=== PATIENT | male | born 1960 | race Caucasian/White ===

== ENCOUNTER 2017-03-03 21:14 | Inpatient (IN) ==
--- NOTE | 2017-03-03 21:39 | Emergency Department Note ---
Disposition Clinical Impression: Transaminitis, Elevated bilirubin, Elevated alkaline phosphatase level, Common bile duct (CBD) obstruction Disposition: Admitted As Inpatient Condition: Good Referrals: Cathleen Booth MD [Non-Partnered Physician] - Forms: ED Satisfaction Letter, Work/School Release Abdominal Pain HPI - General Chief Complaint: ED Abdominal Pain Stated Complaint: bile duct obstruction Time Seen by Provider: 03/03/17 21:37 Source: EMS Mode of arrival: EMS Limitations: no limitations Nursing Notes Reviewed: Yes Vital Signs Reviewed: Yes - History of Present Illness HPI Narrative: 56-year-old male no medical or surgical history presents to the ER due to abnormal labs. Patient states that for the last 3 weeks he has had intermittent abdominal pain as well as nausea and vomiting. He states 3 weeks ago that he took some Pepto-Bismol then broke out into hives and had shortness of breath. He was seen at an emergency department at that time. He states since then he has had hives and itching twice. He was noted to be jaundiced and his eyes last week by coworkers. He reports he has continued to have some periumbilical abdominal pain. No fevers at home. No vomiting or diarrhea. No history of abdominal surgeries. 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 He was seen at the [facility] today where he was noted to be jaundiced with an elevated bilirubin. CT scan demonstrated likely common bile duct obstruction. Patient transferred for gastroenterology evaluation. Pt Subjective Complaint: abdominal pain Onset (ago): week(s) Consistency: intermittent Location: periumbilical Pain Severity: mild Pain Scale: 3 Quality: aching Radiation: none Migration to: no migration Improves with: nothing Worsens with: nothing Associated symptoms: Reports: nausea, vomiting. Denies: fever Treatments prior to arrival: none - Related Data Home Medications Medication Instructions Recorded Confirmed No Known Home Drugs 03/03/17 03/03/17 Allergies Allergy/AdvReac Type Severity Reaction Status Date / Time bismuth subsalicylate Allergy Swelling Verified 03/03/17 21:21 [From Pepto-Bismol] of Lip/Tongue/Throat All systems ED: reviewed and negative except as stated. Constitutional: Denies: fever Cardiovascular: Denies: chest pain Respiratory: Denies: dyspnea Gastrointestinal: Reports: abdominal pain, nausea, vomiting. Denies: diarrhea Genitourinary: Denies: dysuria, hematuria Abdominal Pain PMH - Past Medical History Medical history: Reports: arthritis, COPD, hyperlipidemia, other Male Surgical History: Reports: herniorrhaphy, orthopedic, other Psychiatric history: Reports: no psych history - Social History Smoking status: Current every day smoker Alcohol use: Reports: none Drug use: Reports: none Physical Exam - General Limitations: no limitations General appearance: alert, in no apparent distress - Head Head exam: atraumatic, normocephalic - Eye Eye exam: Present: normal appearance, scleral icterus - ENT ENT exam: normal exam - Neck Neck exam: Present: normal inspection, full ROM - Chest Chest inspection: Present: normal inspection, symmetric chest wall rise - Respiratory Respiratory exam: Present: normal lung sounds bilaterally - Cardiovascular Cardiovascular exam: Present: regular rate, normal rhythm, normal heart sounds - Abdominal Exam Abdominal exam: Present: soft, tenderness (Mild tenderness to palpation periumbilically. Negative Cortes sign. No rigidity or distention.) - Extremities Exam Extremities exam: Present: normal inspection, full ROM - Expanded Upper Extremity Exam Shoulder exam: Present: normal inspection, full ROM Arm exam: Present: normal inspection, full ROM Elbow exam: Present: normal inspection, full ROM Forearm/Wrist exam: Present: normal inspection, full ROM Hand exam: Present: normal inspection, full ROM - Expanded Lower Extremity Exam Hip/Pelvis exam: Present: normal inspection, full ROM Upper leg exam: Present: normal inspection, full ROM Knee exam: Present: normal inspection, full ROM Lower leg exam: Present: normal inspection, full ROM Ankle exam: Present: normal inspection, full ROM Foot/toe exam: Present: normal inspection, full ROM - Neurological Exam Neurological exam: Present: alert - Psychiatric Psychiatric exam: Present: normal affect, normal mood - Skin Skin exam: Present: warm, dry, intact, other (Scleral icterus) Course Course Narrative: Patient seen and examined. Reviewed CT report. We will repeat labs as well as a gallbladder ultrasound. Vital Signs Temperature 98.0 F 03/03/17 21:22 Pulse Rate 71 03/03/17 21:22 Respiratory Rate 16 03/03/17 21:22 Blood Pressure 142/88 03/03/17 21:22 O2 Sat by Pulse Oximetry 97 03/03/17 21:22 Temperature 98.0 F 03/03/17 21:22 Pulse Rate 71 03/03/17 21:22 Respiratory Rate 16 03/03/17 21:22 Blood Pressure 142/88 03/03/17 21:22 O2 Sat by Pulse Oximetry 97 03/03/17 21:22 Oxygen Delivery Oxygen Delivery Room Air Abdominal Pain - MDM Narrative Medical decision making narrative: 56-year-old male presents to the ER due to abnormal labs and imaging. Reports 3 weeks of intermittent abdominal pain. Noted to be jaundiced last week. [facility]. He has an elevated bilirubin, LFTs and alkaline phosphatase here. Patient also underwent right upper quadrant ultrasound showing no evidence of cholecystitis. Patient admitted to the hospitalist service for GI consultation for likely MRCP versus ERCP. - Lab Data Lab results reviewed: Yes I reviewed the patient's lab results. Result diagrams: 03/03/17 21:53 03/03/17 21:53 Lab Results 03/03/17 03/03/17 03/03/17 Range/Units 21:39 21:53 21:53 WBC 7.9 (4.3-11.1) K/mcL RBC 4.45 (4.19-5.50) M/mcL Hgb 14.2 (12.9-16.9) g/dL Hct 41.3 (37.5-50.1) % MCV 92.8 (83.0-100.0) fL MCH 31.9 (28.0-33.3) pg MCHC 34.4 (31.6-35.5) g/dL RDW 14.8 H (11.5-14.5) % Plt Count 283 (140-400) K/mcL MPV 9.3 L (9.4-12.4) fL Immature Gran % 0.4 (0-4) % Seg Neutrophils % 51.6 % Lymphocytes % 30.1 % Monocytes % 12.7 % Eosinophils % 4.2 % Basophils % 1.0 % Neutrophils # 4.1 (1.6-8.9) K/mcL Lymphocytes # 2.4 (0.6-4.6) K/mcL Monocytes # 1.0 (0.0-1.3) K/mcL Eosinophils # 0.3 (0.0-0.6) K/mcL Basophils # 0.1 (0.0-0.2) K/mcL PT 11.1 (9.4-12.1) Seconds INR 1.0 Sodium (136-145) mEq/L Potassium (3.5-4.5) mEq/L Chloride (98-109) mEq/L Carbon Dioxide (19-29) mEq/L BUN (8-26) mg/dL Creatinine (0.72-1.25) mg/dL Est GFR ( Amer) (> 60) Est GFR (Non-Af Amer) (> 60) BUN/Creatinine Ratio (6-26) Glucose (70-99) mg/dL Calculated Osmolality (280-300) Calcium (8.6-10.8) mg/dL Total Bilirubin (0.2-1.2) mg/dL Direct Bilirubin (0.0-0.5) mg/dL Indirect Bilirubin (0.0-1.2) mg/dL AST (5-34) Units/L ALT (0-55) Units/L Alkaline Phosphatase (38-126) Units/L Serum Total Protein (6.0-8.3) g/dL Albumin (3.5-5.0) g/dL Globulin (2.4-3.5) g/dL Albumin/Globulin Ratio (1.1-2.2) Lipase (8-78) Units/L Urine Color Jerome A (Yellow) Urine Clarity Turbid A (Clear) Urine pH 6.0 (5.0-8.0) pH Units Ur Specific [place] 1.028 H (1.010-1.025) Urine Protein Negative (Neg-Trace) mg/dL Urine Glucose (UA) Normal (Normal) mg/dL Urine Ketones Trace H (Negative) mg/dL Urine Blood Negative (Negative) Urine Nitrite Positive A (Negative) Urine Bilirubin Large H (Negative) Urine Urobilinogen Normal (Normal) mg/dL Ur Leukocyte Esterase Small H (Negative) Urine Microscopic RBC 15-30 H (0-3) per hpf Urine Microscopic WBC 0-3 (0-3) per hpf Ur Squamous Epith Cells Few (None-Few) per lpf Urine Bacteria None Seen (None-Few) per hpf Hyaline Casts None Seen (None-Few) per lpf Ur Culture Indicated? YES A (NO) Hepatitis A IgM Ab (Nonreactive) Hep Bs Antigen (Nonreactive) Hep B Core IgM Ab (Nonreactive) Hepatitis C Ab Screen (Nonreactive) 03/03/17 03/03/17 Range/Units 21:53 21:53 WBC (4.3-11.1) K/mcL RBC (4.19-5.50) M/mcL Hgb (12.9-16.9) g/dL Hct (37.5-50.1) % MCV (83.0-100.0) fL MCH (28.0-33.3) pg MCHC (31.6-35.5) g/dL RDW (11.5-14.5) % Plt Count (140-400) K/mcL MPV (9.4-12.4) fL Immature Gran % (0-4) % Seg Neutrophils % % Lymphocytes % % Monocytes % % Eosinophils % % Basophils % % Neutrophils # (1.6-8.9) K/mcL Lymphocytes # (0.6-4.6) K/mcL Monocytes # (0.0-1.3) K/mcL Eosinophils # (0.0-0.6) K/mcL Basophils # (0.0-0.2) K/mcL PT (9.4-12.1) Seconds INR Sodium 139 (136-145) mEq/L Potassium 4.0 (3.5-4.5) mEq/L Chloride 108 (98-109) mEq/L Carbon Dioxide 20 (19-29) mEq/L BUN 14 (8-26) mg/dL Creatinine 0.82 (0.72-1.25) mg/dL Est GFR ( Amer) > 60 (> 60) Est GFR (Non-Af Amer) > 60 (> 60) BUN/Creatinine Ratio 17 (6-26) Glucose 90 (70-99) mg/dL Calculated Osmolality 288 (280-300) Calcium 9.4 (8.6-10.8) mg/dL Total Bilirubin 8.2 H (0.2-1.2) mg/dL Direct Bilirubin 6.5 H (0.0-0.5) mg/dL Indirect Bilirubin 1.7 H (0.0-1.2) mg/dL AST 287 H (5-34) Units/L ALT 497 H (0-55) Units/L Alkaline Phosphatase 379 H (38-126) Units/L Serum Total Protein 7.0 (6.0-8.3) g/dL Albumin 3.5 (3.5-5.0) g/dL Globulin 3.5 (2.4-3.5) g/dL Albumin/Globulin Ratio 1.0 L (1.1-2.2) Lipase 31 (8-78) Units/L Urine Color (Yellow) Urine Clarity (Clear) Urine pH (5.0-8.0) pH Units Ur Specific [place] (1.010-1.025) Urine Protein (Neg-Trace) mg/dL Urine Glucose (UA) (Normal) mg/dL Urine Ketones (Negative) mg/dL Urine Blood (Negative) Urine Nitrite (Negative) Urine Bilirubin (Negative) Urine Urobilinogen (Normal) mg/dL Ur Leukocyte Esterase (Negative) Urine Microscopic RBC (0-3) per hpf Urine Microscopic WBC (0-3) per hpf Ur Squamous Epith Cells (None-Few) per lpf Urine Bacteria (None-Few) per hpf Hyaline Casts (None-Few) per lpf Ur Culture Indicated? (NO) Hepatitis A IgM Ab Nonreactive (Nonreactive) Hep Bs Antigen Nonreactive (Nonreactive) Hep B Core IgM Ab Nonreactive (Nonreactive) Hepatitis C Ab Screen Nonreactive (Nonreactive) - Radiology Data Radiology results reviewed: Yes I reviewed the patient's radiology results. Gallbladder Ultrasound 03/03/17 21:35 IMPRESSION: Dilated common bile duct at 1.6 cm. Further evaluation with preferably MRI/MRCP or CT is recommended. Otherwise unremarkable right upper quadrant ultrasound. D/ / 03/03/2017 22:49:09 Mingo King MD / [facility] Interpreting Provider: Mingo King MD S.B.A.RArpit - S.B.A.Reyes Situation: Demographics, MOA Background: Presenting Complaint, Relevant PMH, Meds, & Allergies Assessment: Vital Signs, Course and respsone to treatment, Exam Concerns, Patient/Family Expectation, Pertinant Lab Results Recommendation: Barrier(s) to disposition, Recommendation based on pending studies, treatments, or consults S.B.A.R. Report Given to: Dr. Sam Hilton Repor Time: 23:44 Attestation Statement - Attestation Attestation: IDion MD, personally evaluated this patient and discussed their management with the resident physician. I reviewed the resident's note and agree with the documented findings, medical decision making, and plan of care. 56-year-old male transferred here from the [place] for evaluation of biliary obstruction. Patient complains of epigastric and right upper quadrant pain intermittently for the past 3 weeks. Over the past several days he has developed jaundice and scleral icterus. There has been some nausea and vomiting. No fever. He was seen at the [facility] in the evaluation revealed elevated total bilirubin. CT showed a dilated common bile duct. On examination patient is a well-developed well-nourished male in no acute distress. He is alert and oriented 3. There is no cyanosis or diaphoresis. Patient does have moderate scleral icterus and mild jaundice. Breath sounds are clear and equal bilaterally. Heart regular rate and rhythm. Abdomen soft with normal bowel sounds. Labs reviewed. Hepatitis panel negative. Total bilirubin 8.2. Gallbladder ultrasound showed a dilated common bile duct, otherwise unremarkable. Hospitalist, Dr. Vargas, was consulted and accepted admission of the patient.
[2017-03-03 21:50] LABS: Bilirubin,Urine Large (Negative); Blood,Urine Negative (Negative); Clarity,Urine Turbid (Clear); Color,Urine Orange (Yellow); Glucose,Urine (UA) Normal (Normal); Ketones,Urine Trace mg/dL (Negative); Leukocyte Esterase,Urine Small (Negative); Nitrite,Urine Positive (Negative); Protein,Urine Negative (Neg-Trace); Specific Gravity,Urine 1.028 (1.010-1.025); Urobilinogen,Urine Normal (Normal)
[2017-03-03 21:53] LABS: Bacteria,Urine None Seen per hpf (None-Few); Hyaline Casts,Urine None Seen per lpf (None-Few); RBC,Urine 15-30 per hpf (0-3); Squamous Epithelial Cell,Urine Few per lpf (None-Few); WBC,Urine 0-3 per hpf (0-3)
[2017-03-03 21:59] LABS: Basophils # 0.1 K/mcL (0.0-0.2); Eosinophils # 0.3 K/mcL (0.0-0.6); Eosinophils % 4.2 %; Hematocrit 41.3 % (37.5-50.1); Hemoglobin 14.2 g/dL (12.9-16.9); Immature Granulocytes % 0.4 % (0-4); Lymphocytes # 2.4 K/mcL (0.6-4.6); Lymphocytes % 30.1 %; Mean Corpuscular HGB Conc 34.4 g/dL (31.6-35.5); Mean Corpuscular Hemoglobin 31.9 pg (28.0-33.3); Mean Corpuscular Volume 92.8 fL (83.0-100.0); Mean Platelet Volume 9.3 fL (9.4-12.4); Monocytes % 12.7 %; Neutrophils # 4.1 K/mcL (1.6-8.9); Platelet Count 283 K/mcL (140-400); Red Blood Count 4.45 M/mcL (4.19-5.50); Red Cell Distribution Width 14.8 % (11.5-14.5); Segmented Neutrophils % 51.6 %
[2017-03-03 22:04] LABS: Prothrombin Time 11.1 Seconds (9.4-12.1)
[2017-03-03 22:14] LABS: Alanine Aminotransferase 497 Units/L (0-55); Albumin 3.5 g/dL (3.5-5.0); Alkaline Phosphatase 379 Units/L (38-126); Aspartate Amino Transferase 287 Units/L (5-34); BUN/Creatinine Ratio 17 (6-26); Bilirubin,Direct 6.5 mg/dL (0.0-0.5); Bilirubin,Indirect 1.7 mg/dL (0.0-1.2); Bilirubin,Total 8.2 mg/dL (0.2-1.2); Blood Urea Nitrogen 14 mg/dL (8-26); Calcium 9.4 mg/dL (8.6-10.8); Carbon Dioxide 20 mEq/L (19-29); Chloride 108 mEq/L (98-109); Globulin 3.5 g/dL (2.4-3.5); Glucose 90 mg/dL (70-99); Lipase 31 Units/L (8-78); Osmolality,Calculated 288 (280-300); Sodium 139 mEq/L (136-145); eGFR For African Americans > 60 (> 60); eGFR For Non-African Americans > 60 (> 60)
[2017-03-03 22:42] LABS: Hepatitis A Antibody IgM Nonreactive (Nonreactive); Hepatitis B Core IgM Nonreactive (Nonreactive); Hepatitis B Surface Antigen Nonreactive (Nonreactive); Hepatitis C Virus Antibody Nonreactive (Nonreactive)
[2017-03-04] MEDS ORDERED: 0.9 % Sodium Chloride 1,000 ML IVC SCH (03:30)
[2017-03-04] MEDS ORDERED: *HR* Morphine 2 MG/ML SYRINGE IVP PRN (03:44)
[2017-03-04] MEDS ORDERED: Naloxone 0.4 MG/ML INJ IVP PRN (03:44)
[2017-03-04] MEDS ORDERED: Acetaminophen 325 MG TABLET PO PRN (03:44)
--- NOTE | 2017-03-04 03:49 | Internal Med History&Physical ---
Date of Encounter: 03/04/17 Time of Encounter: 03:46 Assessment and Plan (1) Common bile duct (CBD) obstruction Current visit: Yes Status: Acute , And bile duct obstruction Nothing by mouth, IV fluids, GI consult to evaluate the possibility of having an ERCP versus additional imaging, consult needs to be called in the morning Morphine for pain No signs of infection Protonix IV for GI prophylaxis and sequential compression devices for DVT prophylaxis. The patient will be admitted for observation. Full code. Time spent on this admission 40 minutes. (2) COPD (chronic obstructive pulmonary disease) Current visit: Yes Status: Acute No exacerbation Qualifiers: COPD type: unspecified COPD Qualified Code(s): J44.9 - Chronic obstructive pulmonary disease, unspecified (3) Hyperlipidemia Current visit: Yes Status: Acute Qualifiers: Hyperlipidemia type: unspecified Qualified Code(s): E78.5 - Hyperlipidemia , unspecified (4) Hypertension Current visit: Yes Status: Acute hydralazine IV as needed Qualifiers: Hypertension type: essential hypertension Qualified Code(s): I10 - Essential (primary) hypertension (5) Tobacco abuse Current visit: Yes Status: Acute Smoking cessation counseling given for 5 minutes, nicotine patch (6) Elevated alkaline phosphatase level Current visit: Yes Status: Acute (7) Elevated bilirubin Current visit: Yes Status: Acute (8) Transaminitis Current visit: Yes Status: Acute Internal Medicine - H&P: HPI Chief complaint: Jaundice Admitted From: Emergency Dept History of present illness: Mr. Fuller is a 56 year old male with a past medical history of COPD not oxygen dependent, hyperlipidemia, tobacco use, who was transferred from the [facility] after having 3 weeks of abdominal pain and becoming more jaundiced. He had a CT scan at the [facility] that showed the common bile duct obstruction. His total bilirubin is 8.2 direct bilirubin 6.5, indirect bilirubin 1.7. AST 287, ALT 497, alkaline phosphatase 379. Ultrasound shows dilatation of the common bile duct of 1.6 cm. UA shows positive nitrates and large amount of bilirubin. The patient denies any dysuria and complains of some epigastric discomfort 2 out of 10 in intensity. His blood pressure is 142/88. There is no evidence of infection and denies any other symptoms other than nausea and abdominal pain Past Med Surg Social Fam HX - Past Medical History Medical history: arthritis, COPD (Not oxygen dependent), hyperlipidemia, other ( Tobacco use, OSTEOARTHRITIS) Psychiatric history: no psych history - Past Surgical History Surgical History: herniorrhaphy - Social History Smoking Status: Current every day smoker Packs per day: pack and a half Smokeless Tobacco Status: No Alcohol use: none Drug use: none - Additional Family History Additional family history: Denies any family history Internal Medicine - H&P: Meds No Known Home Drugs 03/03/17 [History] 3 Allergy/AdvReac Type Severity Reaction Status Date / Time bismuth subsalicylate Allergy Swelling Verified 03/03/17 21:21 [From Pepto-Bismol] of Lip/Tongue/Throat All Systems PM: A 10-system review of systems was performed and is negative for pertinent findings except as documented above in the HPI. Review of systems: Abdominal pain, other systems out of the 10 reviewed were negative - Constitutional Vitals: Temp Pulse Resp BP Pulse Ox 98.2 F 67 17 122/77 96 03/04/17 01:20 03/04/17 01:20 03/04/17 01:20 03/04/17 01:20 03/04/17 01:20 General appearance: Present: A&O X 3 - Head Head exam: Present: atraumatic, normocephalic - Eye Eye exam: Present: PERRL, scleral icterus, conjuntiva pink. Absent: sclera anicteric (Jaundice is very evident) Pupils: Present: PERRL - Neck Neck exam general surgery: Present: supple, trachea midline. Absent: lymphadenopathy - Respiratory Respiratory exam: Present: CTAB. Absent: accessory muscle use, rales, rhonchi, wheezes - Cardiovascular Cardiovascular exam: Present: RRR, +S1, +S2. Absent: diastolic murmur, gallop, rubs, systolic murmur - GI/Abdominal GI/Abdominal exam: Present: normal bowel sounds, soft, no peritoneal signs. Absent: distended, tenderness - Extremities Exam Extremities exam: Present: warm, radial pulses palpable and symmetrical. Absent : calf tenderness, cyanotic, pedal edema - Neurological Exam Neurological exam: Present: CN II-XII intact, oriented X3, no focal deficits. Absent: pronater drift, facial droop, speech deficit - Skin Skin exam: Present: dry, intact Internal Med - H&P Results - Labs CBC & Chem 7: 03/03/17 21:53 03/03/17 21:53
[2017-03-04] MEDS ORDERED: Ipratropium/Albuterol Neb 3 ML IH PRN (03:52)
[2017-03-04] MEDS: D5% in 0.45% NACL 1,000 ML IVC SCH ×2 (03:56→11:05)
[2017-03-04] MEDS ORDERED: Nicotine 21 MG PATCH.TD24 TD SCH (09:00)
--- NOTE | 2017-03-04 09:29 | Gastroenterology Consult Note ---
Date of Encounter: 03/04/17 Time of Encounter: 09:27 - Assessment and plan (1) Common bile duct (CBD) obstruction Current Visit: Yes Status: Acute Assessment and plan: Mr. Fuller complains of 3 weeks of abdominal discomfort, acid reflux, willem- colored stools, diarrhea, progressive icterus and progressive yellowing of his skin. He presented to the OR and underwent CT scan that demonstrated a common bile duct obstruction and was transferred to our medical facility for which she underwent ultrasound of the right upper quadrant demonstrated a dilated common bile duct at 1.6 cm, his gallbladder was distended without evidence of pericholecystic fluid or wall thickening or stones. The visualized portion of the pancreas was unremarkable on ultrasound. His UA was positive for large amount of bilirubin and nitrates. Laboratory results demonstrated a total bilirubin of 8.2, direct bilirubin of 6.5, indirect bilirubin of 1.7, AST of 287 , ALT of 497 and alkaline phosphatase of 379. Mr. Fuller demonstrates symptoms of jaundice, scleral icterus, right upper quadrant tenderness but is currently without fever, hypotension or confusion. CT of the abdomen is not available for viewing from the OR, right upper quadrant ultrasound demonstrates 1.6 cm dilatation of the common bile duct but no stones were currently visualized. At this time it is suspected that he has obstructing stones but cannot rule out other causes including mass. Plan: - NPO - Will require ERCP - May benefit from MRCP for evaluation of obstruction. - Hepatitis panel (2) Transaminitis Current Visit: Yes Status: Acute Assessment and plan: Transaminitis secondary to common bile duct obstruction, plan as discussed above. - Repeat CMP daily (3) Elevated bilirubin Current Visit: Yes Status: Acute Assessment and plan: Secondary to common bile duct obstruction will require ERCP. Patient does not demonstrate any neurologic effects at this time. (4) Elevated alkaline phosphatase level Current Visit: Yes Status: Acute Assessment and plan: As discussed above. (5) Tobacco abuse Current Visit: Yes Status: Acute Assessment and plan: Patient is a daily 1.5 pack per day smoker. With known COPD. - Time Spent With Patient Total time spent is greater than 50% in coordination of care (as documented) at patient's floor/unit and/or counseling patient: GI History of Present Illness - Data of Consult Consult date: 03/04/17 Requesting Physician: Darrell Hairston MD - Consult Narrative Reason for consult: Obstructed biliary system History of present illness: Mr. Fuller is a 56 year old male known medical history of hyperlipidemia, hypertension, COPD who was transferred from the OR due to common bile duct obstruction. He states that roughly 3 weeks ago he started developing severe acid reflux like symptoms epigastric discomfort and nausea worsened by eating. Over the last 3 weeks he started to notice that his stools were white to willem- colored, his urine darkened and his skin became yellow and his eyes became yellow. His symptoms did not improve and his family urged him to seek medical attention. He states his abdominal discomfort with the localized originally in the right upper quadrant and in radiate across his upper abdomen. Currently his pain is well controlled. He did have episodes of nausea and vomiting but noticed improvement if he avoided fatty foods. He denies any confusion, headaches, fevers, chills, diaphoresis, change in vision or extremity weakness. He did try taking Pepto-Bismol but said he started to develop a rash and hives and facial swelling after his abdominal pain initiated. He was unsure if this is related to the Pepto-Bismol or his symptoms. He said he has had a total of 3 episodes and was prescribed a 5 day course of prednisone by his PCP. For the hives he had been taking Benadryl. He has not taken any other medications to treat his current symptoms over the last 3 weeks. He did prior to all this have some right upper quadrant discomfort after eating. He had a colonoscopy 1.5 years ago for which they had seen polyps and remove them stating his next follow-up would be in 5 years at the OR. He denies any history of EGD. Colonoscopy: 1 year ago at OR EGD: Denies history Past Med Surg Social Fam HX - Past Medical History Medical history: arthritis, COPD (Not oxygen dependent), hyperlipidemia, other ( Tobacco use, OSTEOARTHRITIS) Psychiatric history: no psych history - Past Surgical History Surgical History: herniorrhaphy - Social History Smoking Status: Current every day smoker Packs per day: pack and a half Smokeless Tobacco Status: No Alcohol use: none Drug use: none - Gastrointestinal Gastrointestinal: Present: abdominal pain, bloating, change in bowel habits ( Willem-colored stools), diarrhea, dyspepsia, heartburn, nausea, vomiting. Absent : coffee ground emesis, constipation, hematemesis, hematochezia, melena - Constitutional Constitutional: no fatigue, no fever(s), no weight gain, no weight loss - EENT Eyes: Yellow Discoloration Nose, mouth and throat: Absent: sore throat - Cardiovascular Cardiovascular ROS: Absent: chest pain, palpitations - Respiratory Respiratory IM: Absent: cough, dyspnea, hemoptysis, wheezing - Genitourinary Genitourinary: Present: change in color, Urinary frequency - Neurological ROS Neurological GI: Absent: confusion, dizziness, headache(s), weakness - Musculoskeletal Musculoskeletal ROS GI: Absent: back pain, joint swelling - Integumentary Integumentary GI: Present: jaundice. Absent: pruritis, rash, other - Psychiatric ROS Psychiatric GI: Absent: anxiety - Constitutional Vitals: Temp Pulse Resp BP Pulse Ox 97.9 F 65 14 120/73 98 03/04/17 07:04 03/04/17 07:04 03/04/17 07:04 03/04/17 07:04 03/04/17 07:04 General appearance: Present: A&O X 3, pleasant, no acute distress Exam: General: Patient alert, awake, oriented 3, interactive, in no acute distress HEENT: Normocephalic, atraumatic, pupils equal reactive to light, scleral icterus, oral mucosa moist, uvula midline, neck supple trachea midline no palpable lymphadenopathy, no thyromegaly. Chest: Symmetric bilateral correlating with respiratory effort, effort nonlabored. Cardiac: Regular rate and rhythm, positive S1 and S2. no bruits appreciated bilateral carotids, Radial pulses 2+ bilateral, posterior tibial and dorsal pedal pulses 2+ bilateral. Respiratory: Clear to auscultation all lung viera Abdomen: Soft, nontender, positive bowel sounds, no palpable masses appreciated on examination Extremities: Symmetric bilateral, bilateral lower extremities without erythema or edema patient moving all 4 extremities spontaneously. Jaundice Neurologic: No focal deficits appreciated on examination. Face symmetric, muscle strength symmetric bilateral upper and lower extremities. Results - Labs CBC & Chem 7: 03/03/17 21:53 03/03/17 21:53 Labs: Last Result Calcium 9.4 mg/dL (8.6-10.8) 03/03/17 21:53 Entire Visit Hgb 14.2 g/dL (12.9-16.9) 03/03/17 21:53 Hct 41.3 % (37.5-50.1) 03/03/17 21:53 PT 11.1 Seconds (9.4-12.1) 03/03/17 21:53 Total Bilirubin 8.2 mg/dL (0.2-1.2) H 03/03/17 21:53 AST 287 Units/L (5-34) H 03/03/17 21:53 ALT 497 Units/L (0-55) H 03/03/17 21:53 Lipase 31 Units/L (8-78) 03/03/17 21:53 - ABG ABG results: PT/INR, D-dimer PT 11.1 Seconds (9.4-12.1) 03/03/17 21:53 Consult Discharge Plan - Plan [facility]errals: [facility] [Primary Care Provider[facility] -
[2017-03-04] MEDS ORDERED: Nicotine 2 MG GUM BC PRN (10:53)
[2017-03-04] MEDS: Pantoprazole 40 MG VIAL IVP SCH (11:04)
[2017-03-04 11:45] LABS: Basophils # 0.1 K/mcL (0.0-0.2); Basophils % 1.4 %; Eosinophils # 0.3 K/mcL (0.0-0.6); Eosinophils % 4.1 %; Hematocrit 44.1 % (37.5-50.1); Hemoglobin 14.8 g/dL (12.9-16.9); Immature Granulocytes % 0.4 % (0-4); Lymphocytes # 2.2 K/mcL (0.6-4.6); Lymphocytes % 30.8 %; Mean Corpuscular HGB Conc 33.6 g/dL (31.6-35.5); Mean Corpuscular Hemoglobin 31.5 pg (28.0-33.3); Mean Corpuscular Volume 93.8 fL (83.0-100.0); Mean Platelet Volume 9.3 fL (9.4-12.4); Monocytes % 13.5 %; Neutrophils # 3.5 K/mcL (1.6-8.9); Platelet Count 297 K/mcL (140-400); Segmented Neutrophils % 49.8 %
[2017-03-04 11:59] LABS: BUN/Creatinine Ratio 13 (6-26); Blood Urea Nitrogen 11 mg/dL (8-26); Calcium 9.5 mg/dL (8.6-10.8); Carbon Dioxide 23 mEq/L (19-29); Chloride 107 mEq/L (98-109); Glucose 92 mg/dL (70-99); Osmolality,Calculated 285 (280-300); Potassium 4.1 mEq/L (3.5-4.5); Sodium 138 mEq/L (136-145); eGFR For African Americans > 60 (> 60); eGFR For Non-African Americans > 60 (> 60)
[2017-03-04] MEDS ORDERED: *HR* LORazepam 2 MG/ML VIAL IVP ONE (15:39)
--- NOTE | 2017-03-04 21:44 | Event Note ---
Date of Encounter: 03/04/17 Time of Encounter: 15:32 Patient seen and examined. Plan is for MRCP today. Patient having anxiety, will give 0.5 mg Ativan prior to imaging. Please see H&P for initial evaluation.
[2017-03-05 05:37] LABS: Hematocrit 37.8 % (37.5-50.1); Mean Corpuscular HGB Conc 34.9 g/dL (31.6-35.5); Mean Corpuscular Hemoglobin 31.9 pg (28.0-33.3); Mean Corpuscular Volume 91.3 fL (83.0-100.0); Mean Platelet Volume 9.6 fL (9.4-12.4); Platelet Count 259 K/mcL (140-400); Red Blood Count 4.14 M/mcL (4.19-5.50); Red Cell Distribution Width 14.8 % (11.5-14.5)
[2017-03-05 05:40] LABS: Hemoglobin 13.2 g/dL (12.9-16.9)
[2017-03-05 06:04] LABS: Alanine Aminotransferase 449 Units/L (0-55); Albumin 2.9 g/dL (3.5-5.0); Albumin/Globulin Ratio 0.9 (1.1-2.2); Alkaline Phosphatase 346 Units/L (38-126); Aspartate Amino Transferase 249 Units/L (5-34); BUN/Creatinine Ratio 12 (6-26); Bilirubin,Total 8.2 mg/dL (0.2-1.2); Blood Urea Nitrogen 9 mg/dL (8-26); Calcium 8.9 mg/dL (8.6-10.8); Carbon Dioxide 22 mEq/L (19-29); Chloride 109 mEq/L (98-109); Globulin 3.1 g/dL (2.4-3.5); Glucose 90 mg/dL (70-99); Osmolality,Calculated 286 (280-300); Potassium 3.9 mEq/L (3.5-4.5); eGFR For African Americans > 60 (> 60); eGFR For Non-African Americans > 60 (> 60)
[2017-03-05 06:07] LABS: Sodium 139 mEq/L (136-145)
[2017-03-05] MEDS: D5% in 0.45% NACL 1,000 ML IVC SCH ×3 (11:14→11:47)
[2017-03-05] MEDS: Pantoprazole 40 MG VIAL IVP SCH (11:36)
[2017-03-05] MEDS ORDERED: *HR* Propofol 200 MG/20 ML VIAL IVP ONE (12:39)
[2017-03-05] MEDS ORDERED: Ondansetron 4 MG/2 ML VIAL IVP ONE ×2 (12:39→15:13)
[2017-03-05] MEDS ORDERED: Lidocaine -MPF 2% 5 ML VIAL INFILT ONE (12:39)
[2017-03-05] MEDS ORDERED: *HR* Succinylcholine 200 MG/10 ML VIAL IVP ONE (12:39)
--- NOTE | 2017-03-05 13:53 | Anesthesia Evaluation PreOp ---
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 Any Significant HX Other Medical History: Hepatic (transaminitis), Other (CBD obstruction) Anesthesia History: No Prior Anesthetic Complications, Past Anesthesia (hernia) Alcohol Use: none Drug use: none Medications and Allergies No Known Home Drugs 03/03/17 [History] 3 Allergy/AdvReac Type Severity Reaction Status Date / Time bismuth subsalicylate Allergy Swelling Verified 03/03/17 21:21 [From Pepto-Bismol] of Lip/Tongue/Throat - Meds/Allergy Pre-op Review Medications Reviewed: Yes Allergies Reviewed: Yes Beta Blockers on Current Med List: No Anesthesia Results - Labs 03/05/17 04:47 03/05/17 04:47 Anesthesia Exam Selected Entries 03/05/17 11:34 Temperature 97.3 F L Pulse Rate 68 Respiratory Rate 16 Blood Pressure 138/88 O2 Sat by Pulse Oximetry 99 Weight: 72kg NPO (# of Hours): 8 - HEENT Pupil (Motor): EOMI Mallampati: II Teeth: Normal Oral Opening: Greater than 3 - TOOL SUPERVISOR LOC: Oriented TOOL SUPERVISOR Motor: Normal RUE, Normal LUE, Normal RLE, Normal LLE, Normal Face TOOL SUPERVISOR Sensory: Normal: RUE, LUE, RLE, LLE, Face - Cardiac Rhythm: Regular Murmur: None - Pulmonary Breath Sounds: bilateral Clear Respiratory Effort: Symmetrical Anesthesia Assess/Plan ASA Score: 2 Modified Panchito Scale for Level of Consciousness: Cooperative, oriented, and tranquil Anesthetic Plan: General Monitoring Plan: Standard Monitors Recovery Plan: PACU (Discussed GA, agrees to proceed)
[2017-03-05] MEDS ORDERED: *HR* FentaNYL (PF) 100 MCG/2 ML VIAL ONE (14:10)
[2017-03-05] MEDS ORDERED: *HR* Promethazine 25 MG/ML VIAL IVP PRN (15:13)
[2017-03-05] MEDS ORDERED: *HR* HYDROmorphone (PF) 1 MG/ML SYRINGE IVP PRN (15:13)
[2017-03-05] MEDS ORDERED: Ringers Solution, Lactated 1,000 ML IVC SCH (15:15)
[2017-03-05] MEDS: Ondansetron 4 MG/2 ML VIAL IVP PRN ×2 (17:35→21:35)
[2017-03-05] MEDS ORDERED: *HR* HYDROmorphone (PF) 1 MG/ML SYRINGE IVP ONE (17:48)
--- NOTE | 2017-03-06 08:01 | Internal Med Progress Note ---
Date of Encounter: 03/06/17 Time of Encounter: 12:30 - Assessment and plan (1) Right upper quadrant pain Current Visit: Yes Status: Acute Assessment and plan: Await results of ERCP. Concern for cancer. Patient inquired about MRI results yesterday. Discussed briefly that MRI results does note concern for cancer. I did inform him and siblings present in the room that we need more information on this matter. GI following, recs appreciated. (2) Transaminitis Current Visit: Yes Status: Acute (3) Elevated bilirubin Current Visit: Yes Status: Acute - Subjective Interval history: Patient seen in AM and re-evaluated after finished with ERCP. Results of procedure pending. Abdominal pain currently 11/04 has not tried pain medication as of now. 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 Interval placement of biliary stent. Please refer to the procedure report for further details. D/ / Mingo King MD / Mingo iKng MD Interpreting Provider: Mingo King MD Consult Discharge Plan - Plan Referrals: [facility] [Outside]
[2017-03-06 09:35] LABS: Alanine Aminotransferase 459 Units/L (0-55); Albumin 3.1 g/dL (3.5-5.0); Alkaline Phosphatase 368 Units/L (38-126); Aspartate Amino Transferase 229 Units/L (5-34); BUN/Creatinine Ratio 10 (6-26); Bilirubin,Total 4.5 mg/dL (0.2-1.2); Blood Urea Nitrogen 9 mg/dL (8-26); Calcium 8.8 mg/dL (8.6-10.8); Carbon Dioxide 23 mEq/L (19-29); Chloride 107 mEq/L (98-109); Globulin 3.2 g/dL (2.4-3.5); Glucose 218 mg/dL (70-99); Osmolality,Calculated 291 (280-300); Potassium 3.8 mEq/L (3.5-4.5); Sodium 138 mEq/L (136-145); Total Protein 6.3 g/dL (6.0-8.3); eGFR For African Americans > 60 (> 60); eGFR For Non-African Americans > 60 (> 60)
[2017-03-06] MEDS: Pantoprazole 40 MG VIAL IVP SCH (10:02)
--- NOTE | 2017-03-06 10:17 | Gastroenterology Progress Note ---
<ChiaraRaquel Baugh - Last Filed: 03/06/17 14:28> Date of Encounter: 03/06/17 Time of Encounter: 10:10 - Assessment and plan (1) Common bile duct (CBD) obstruction Current Visit: Yes Status: Acute Assessment and plan: Mr. Fuller is a 56 year old male who presented with CBD obstruction and jaundice. He is s/p EUS/ERCP with CBD biopsy and stent placement. He has improved pain, is tolerating clear liquids. Would advance diet as tolerated. Will follow up in the office next week with Dr Casas. - Time Spent With Patient Total time spent is greater than 50% in coordination of care (as documented) at patient's floor/unit and/or counseling patient: - Subjective Interval history: 56 year old male who presented with biliary obstruction he had EUS/ERCP with CBD stent and biopsies done yesterday. He has mildly improved icterus. He has mild epigastric pain but denies any nausea or vomiting. He denies bloody stools. He has been afebrile. He has been tolerating clear liquids. - Constitutional Vitals: Temp Pulse Resp BP Pulse Ox 98.2 F 78 14 136/80 96 03/06/17 06:43 03/06/17 06:43 03/06/17 06:43 03/06/17 06:43 03/06/17 06:43 General appearance: Present: A&O X 3, pleasant, no acute distress Exam: CONSTITUTIONAL:~alert, no acute distress.~HEAD:~normocephalic.~EYES:~mild jaundice.~NECK:~no obvious swelling.~HEART:~regular rate and rhythm, no murmurs. ~LUNGS:~bilateral good air entry.~ABDOMEN:~non distended, soft, tender epigastric area, RECTAL EXAM:~Deferred.~EXTREMITIES:~no clubbing, cyanosis or edema.~SKIN:~jaundice noted.~NEUROLOGIC:~no obvious focal defect.~ Results - Labs CBC & Chem 7: 03/05/17 04:47 03/06/17 09:14 Labs: Last Result Calcium 8.8 mg/dL (8.6-10.8) 03/06/17 09:14 Entire Visit Hgb 13.2 g/dL (12.9-16.9) D 03/05/17 04:47 Hct 37.8 % (37.5-50.1) 03/05/17 04:47 PT 11.1 Seconds (9.4-12.1) 03/03/17 21:53 Total Bilirubin 4.5 mg/dL (0.2-1.2) H 03/06/17 09:14 AST 229 Units/L (5-34) H 03/06/17 09:14 ALT 459 Units/L (0-55) H 03/06/17 09:14 Lipase 31 Units/L (8-78) 03/03/17 21:53 - ABG ABG results: PT/INR, D-dimer PT 11.1 Seconds (9.4-12.1) 03/03/17 21:53 - Impressions Impressions Cath/Invasive Procedure 03/05/17 00:00 IMPRESSION: Distal common bile duct stricture, 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 Interval placement of biliary stent. Please refer to the procedure report for further details. D/ / Mingo King MD / Mingo King MD Interpreting Provider: Mingo King MD Consult Discharge Plan - Plan Additional Instructions: Follow-up with GI 03/12 Referrals: [facility] [Outside] <Jaspreet Casas - Last Filed: 03/06/17 15:38> Date of Encounter: 03/06/17 Time of Encounter: 14:45 - Time Spent With Patient Total time spent is greater than 50% in coordination of care (as documented) at patient's floor/unit and/or counseling patient: - Constitutional Vitals: Temp Pulse Resp BP Pulse Ox 98.6 F 76 16 121/82 96 03/06/17 11:21 03/06/17 11:21 03/06/17 11:21 03/06/17 11:21 03/06/17 11:21 Results - Labs CBC & Chem 7: 03/05/17 04:47 03/06/17 09:14 Labs: Last Result Calcium 8.8 mg/dL (8.6-10.8) 03/06/17 09:14 Entire Visit Hgb 13.2 g/dL (12.9-16.9) D 03/05/17 04:47 Hct 37.8 % (37.5-50.1) 03/05/17 04:47 PT 11.1 Seconds (9.4-12.1) 03/03/17 21:53 Total Bilirubin 4.5 mg/dL (0.2-1.2) H 03/06/17 09:14 AST 229 Units/L (5-34) H 03/06/17 09:14 ALT 459 Units/L (0-55) H 03/06/17 09:14 Lipase 31 Units/L (8-78) 03/03/17 21:53 - ABG ABG results: PT/INR, D-dimer PT 11.1 Seconds (9.4-12.1) 03/03/17 21:53 - Impressions Impressions Abdomen MRI 03/04/17 14:12 IMPRESSION: 1. Moderate intra and extrahepatic biliary duct dilation with abrupt focal nodular wall thickening and narrowing of the proximal to mid common bile duct measuring approximately 1.1 cm in length. Findings are suspicious for neoplasm such as a cholangiocarcinoma until proven otherwise. Recommend further evaluation with ERCP. 2. Distended gallbladder with gallbladder sludge. 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 Interval placement of biliary stent. Please refer to the procedure report for further details. D/ / Mingo King MD / Mingo King MD Interpreting Provider: Mingo King MD - Attending Attestation I examined this patient and my medical decision-making was reviewed with the Resident Physician. I agree with the documented findings, disposition and treatment plan as described except to the extent set forth below. Pt with CBD stricture ?? Chalonagio. S/P Brushing/stenting Rec: F/U GI
[2017-03-06 11:24] VITALS: BP 121/82
[2017-03-06] MEDS: D5% in 0.45% NACL 1,000 ML IVC SCH ×2 (12:21→12:23)
--- NOTE | 2017-03-06 15:17 | Discharge Summary ---
Date of Encounter: 03/06/17 Time of Encounter: 15:15 - Discharge Diagnosis (1) Common bile duct (CBD) obstruction Priority: Primary Status: Acute - Discharge Medications Home Medications: No Known Home Drugs 03/03/17 [History] Allergies/Adverse Reactions: 3 Allergy/AdvReac Type Severity Reaction Status Date / Time bismuth subsalicylate Allergy Swelling Verified 03/03/17 21:21 [From Pepto-Bismol] of Lip/Tongue/Throat Procedures/tests Complete & Pending: Procedures Performed prior 72 hours Category Date Time Status MR abdomen wo con [MR] Stat MRI 03/04/17 14:12 Completed Date of admission: 03/04/17 04:12 Primary care physician: [facility] Discharging clinician: Darrell Hairston - Patient Status Disposition: Home, Self-Care Condition: Good Functional capacity at discharge: independent ambulation Overall status at discharge: patient is progressing back to baseline - Discharge Instructions Follow Up With: [facility] [Outside] Additional Instructions: Follow-up with GI 03/12 - Diet and Activity Activity: increase activity as tolerated Diet: advance to your usual diet Hospital course: Mr. Fuller is a 56 year old male with a past medical history of COPD, hyperlipidemia, tobacco use, who was transferred from the [facility] after having 3 weeks of abdominal pain and becoming more jaundiced. He had a CT scan at the [facility] that showed the common bile duct obstruction. On admission his total bilirubin 8.2 direct bilirubin 6.5, indirect bilirubin 1.7. AST 287, ALT 497, alkaline phosphatase 379. Ultrasound shows dilatation of the common bile duct of 1.6 cm. UA shows positive nitrates and large amount of bilirubin. The patient denies any dysuria and complains of some epigastric discomfort 2 out of 10 in intensity. His blood pressure is 142/88. There is no evidence of infection and denies any other symptoms other than nausea and abdominal pain. GI was consulted and patient underwent MRCP which showed intra and extrahepatic biliary duct dilation and focal nodular wall thickening. On 03/05 he had EUS/ ERCP with CBD biopsy and stent placement. Pain improved, he is tolerating clear liquids. He was able to advance his diet. He was discharged home in stable condition. Biopsies pending, he has a follow-up visit with Dr. Casas on 03/12. - Time Spent with Patient Total time spent providing and/or coordinating discharge services: - Constitutional Vitals: Temp Pulse Resp BP Pulse Ox 98.6 F 76 16 121/82 96 03/06/17 11:21 03/06/17 11:21 03/06/17 11:21 03/06/17 11:21 03/06/17 11:21 General appearance: Present: A&O X 3 Exam: + Jaundice CVS: RRR Lungs: CTAB Abd: Soft, +TTP mid epigastric and RUQ, +BS Ext: no edema
== END 2017-03-06 16:20 | disposition home or self-care (01) | DRG 446 ==
LOC: EMEROO 21:14 → 3ANU 21:14 → SUATTDRO 03-04 04:12
PROVIDERS: ADMIT Internal Medicine; ATTEND Student in an Organized Health Care Education/Training Program